=== PATIENT | male | born 1995 | race Caucasian/White ===

== ENCOUNTER 2017-08-11 18:37 | Emergency (ER) | payer BC ==
[~2017-08-11] VITALS: Ht 175.3 cm; Wt 72.6 kg
[2017-08-11 19:00] VITALS: BP_SYST 139
[2017-08-11 20:42] VITALS: BP_SYST 135
== END 2017-08-11 20:42 | disposition home or self-care (01) ==
LOC: SED 18:37
DX: L05.01 Pilonidal cyst with abscess (principal)
CPT/HCPCS: 99283